=== PATIENT | female | born 1965 | race Hispanic/Latino ===

== ENCOUNTER 2020-12-18 14:49 | Outpatient (CLI) | payer OTHER | END 2020-12-18 14:50 | disposition home or self-care (01) | LOC: CSHMRI 14:49 | PROVIDERS: ATTEND Neurological Surgery | DX: M47.12 Other spondylosis with myelopathy, cervical region (principal); M54.6 Pain in thoracic spine; M47.812 Spondylosis without myelopathy or radiculopathy, cervical region; M47.814 Spondylosis without myelopathy or radiculopathy, thoracic region | CPT/HCPCS: 72141; 72146 ==

== ENCOUNTER 2021-08-13 08:07 | Outpatient (CLI) | payer BC | END 2021-08-13 08:08 | disposition home or self-care (01) | LOC: CSHMAMMO 08:07 | PROVIDERS: ATTEND Nurse Practitioner Family | DX: Z12.31 Encounter for screening mammogram for malignant neoplasm of breast (principal) | CPT/HCPCS: 77063; 77067 ==

== ENCOUNTER 2021-12-30 16:07 | Outpatient (CLI) | payer BC | END 2021-12-30 16:08 | disposition home or self-care (01) | LOC: CSHMRI 16:07 | PROVIDERS: ATTEND Anesthesiology | DX: M51.16 Intervertebral disc disorders with radiculopathy, lumbar region (principal); M54.50 Low back pain, unspecified; M47.816 Spondylosis without myelopathy or radiculopathy, lumbar region | CPT/HCPCS: 72148 ==

== ENCOUNTER 2022-10-26 11:42 | Outpatient (CLI) | payer BC | END 2022-10-26 11:43 | disposition home or self-care (01) | LOC: CSHMAMMO 11:42 | PROVIDERS: ATTEND Obstetrics & Gynecology | DX: Z12.31 Encounter for screening mammogram for malignant neoplasm of breast (principal); M81.0 Age-related osteoporosis without current pathological fracture; M85.851 Other specified disorders of bone density and structure, right thigh; M85.852 Other specified disorders of bone density and structure, left thigh | CPT/HCPCS: 77063; 77067; 77080 ==

== ENCOUNTER 2023-07-25 00:20 | Emergency (ER) | payer BC ==
[2023-07-25] MEDS ORDERED: Ketorolac Tromethamine 30 MG (1 mL) VIAL ONE (01:22)
[2023-07-25] MEDS ORDERED: Ondansetron PF 4 MG/2 ML Vial ONE (01:22)
[2023-07-25 01:25] LABS: Bilirubin 3+ (Negative); Blood, Urine 150 (Negative); Clarity Clear (Clear); Glucose, Urine (Dipstick) Normal (Negative); Ketone, Urine 150 mg/dL (Negative); Leukocyte 25 (Negative); Nitrite Negative (Negative); Protein, Urine (Dipstick) 100 mg/dl (Neg-Trace); Specific Gravity, Urine 1.025 (1.005-1.030)
[2023-07-25 01:39] LABS: Bacteria/HPF 3+ HPF (None Seen); CAUTI Indications for Culture Acute Hematuria; Mucous/LPF 2+ LPF (<2+); Squamous Epithelial 0-3 HPF (0-3)
[2023-07-25 01:40] LABS: Urine Culture Reflex No No
[2023-07-25] MEDS ORDERED: cefTRIAXone (ROCEPHIN) 1 GM VIAL ONE (01:54)
[2023-07-25 02:00] LABS: #Basophils 0.04 10x3/uL (0.0-0.2); #Eosinphils 0.01 10x3/uL (0.0-0.5); #Monocytes 1.14 10x3/uL (0.0-1.1); #Neutrophils 19.75 10x3/uL (1.5-8.4); %Basophils 0.2 % (0.0-2.0); %Monocytes 5.2 % (0.0-10.0); %Neutrophils 89.8 % (40.0-75.0); Hematocrit 35.8 % (34.9-44.5); Mean Corpuscular HGB CONC 33.5 g/dL (32.0-36.0); Mean Corpuscular Hemoglobin 28.8 pg (27.0-33.0); Mean Corpuscular Volume 86.1 fL (81.6-98.3); Mean Platelet Volume 8.8 fL (7.4-10.4); Platelet Count 523 10x3/uL (150-450); RBC Distribution Width 14.1 % (11.5-14.5); Red Blood Cell (RBC) Count 4.16 10x6/uL (3.90-5.03)
[2023-07-25 02:08] LABS: ALT (SGPT) 39 U/L (8-55); AST (SGOT) 29 U/L (5-34); Albumin 2.7 g/dL (3.5-5.0); Alkaline Phosphatase 139 U/L (40-110); Anion Gap 17 mmol/L (10-20); BUN (Urea Nitrogen) 11 mg/dL (9.8-20.1); Bilirubin, Total 0.7 mg/dL (0.2-1.2); Calc. Creatinine Clearance 0 mL/min (70-130); Calcium 9.1 mg/dL (7.8-10.44); Carbon Dioxide 23 mmol/L (22-29); Chloride 102 mmol/L (98-107); Estimated GFR 103; Globulin 4.4 g/dL (2.4-3.5); Glucose 132 mg/dL (70-105); Lipase 10 U/L (8-78); Potassium 3.6 mmol/L (3.5-5.1); Protein, Total 7.1 g/dL (6.0-8.3); Sodium 138 mmol/L (136-145)
[2023-07-25] MEDS ORDERED: Morphine 4 MG/ML VIAL ONE ×3 (02:50→06:30)
[2023-07-25] MEDS ORDERED: Morphine 2 MG/ML VIAL ONE ×3 (02:50→06:30)
[2023-07-25] MEDS ORDERED: diphenhydrAMINE 50 MG/ML VIAL ONE (03:03)
[2023-07-25] MEDS ORDERED: metroNIDAZOLE 500 MG (100 mL) BAG ONE (04:15)
[2023-07-25] MEDS ORDERED: Iopamidol 370 76% 100 ML VIAL ONE (10:44)
== END 2023-07-25 08:40 | disposition short-term general hospital (02) ==
LOC: CSHERS 00:20
DX: K65.1 Peritoneal abscess (principal); R10.30 Lower abdominal pain, unspecified; K21.9 Gastro-esophageal reflux disease without esophagitis; Z79.899 Other long term (current) drug therapy
CPT/HCPCS: 74177; 80053; 81001; 83690; 85025; 87086; 96361; 96365; 96367; 96375; 96376; J0696; J1200; J1885; J2270; J2272; J2405; Q9967

== ENCOUNTER 2023-08-09 07:16 | Outpatient (CLI) | payer BC | END 2023-08-09 07:17 | disposition home or self-care (01) | LOC: CSHCT 07:16 | PROVIDERS: ATTEND Specialist | DX: K65.1 Peritoneal abscess (principal); Z96.89 Presence of other specified functional implants; K57.30 Diverticulosis of large intestine without perforation or abscess without bleeding | CPT/HCPCS: 74177 ==

== ENCOUNTER 2023-09-16 07:33 | Outpatient (CLI) | payer BC | END 2023-09-16 07:34 | disposition home or self-care (01) | LOC: CSHCT 07:33 | PROVIDERS: ATTEND Internal Medicine | DX: K57.20 Diverticulitis of large intestine with perforation and abscess without bleeding (principal); R10.30 Lower abdominal pain, unspecified; K57.30 Diverticulosis of large intestine without perforation or abscess without bleeding; M79.89 Other specified soft tissue disorders | CPT/HCPCS: 74177 ==

== ENCOUNTER 2023-11-01 07:40 | Outpatient (CLI) | payer BC ==
[2023-11-01] MEDS ORDERED: Iopamidol 300 61% 100 ML VIAL FS ONE (09:55)
== END 2023-11-01 07:41 | disposition home or self-care (01) ==
LOC: CSHCT 07:40
PROVIDERS: ATTEND Surgery
DX: K57.20 Diverticulitis of large intestine with perforation and abscess without bleeding (principal); Z96.89 Presence of other specified functional implants; K57.30 Diverticulosis of large intestine without perforation or abscess without bleeding
CPT/HCPCS: 74177; Q9967

== ENCOUNTER 2024-12-25 12:43 | Outpatient (CLI) | payer BC | END 2024-12-25 12:44 | disposition home or self-care (01) | LOC: CSHMAMMO 12:43 | PROVIDERS: ATTEND Family Medicine | DX: Z12.31 Encounter for screening mammogram for malignant neoplasm of breast (principal) | CPT/HCPCS: 77063; 77067 ==